=== PATIENT | female | born 1990 | race African-American/Black ===

== ENCOUNTER 2018-08-07 16:12 | Emergency (ER) | payer OTHER, SELFPAY ==
--- NOTE | 2018-08-07 17:24 | ER ---
Nurse's Notes [facility] Name: Mercedes Washington Age: 28 yrs Sex: Female : 1990 Arrival Date: 08/07/2018 Time: 16:14 Bed 6 Private MD: Diagnosis: Other abnormal uterine and vaginal bleeding;Abnormal pap smear Presentation: 08/07 16:19 Presenting complaint: Patient states: lower abd pain x 1 year ago. Pt states "I think aa5 it's cervical cancer because I had an abnormal pap smear about 2 week ago". Transition of care: patient was not received from another setting of care. Onset of symptoms was July 2018. Risk Assessment: Do you want to hurt yourself or someone else? Patient reports no desire to harm self or others. Initial Sepsis Screen: Does the patient meet any 2 criteria? No. Patient's initial sepsis screen is negative. Does the patient have a suspected source of infection? No. Patient's initial sepsis screen is negative. Care prior to arrival: None. 16:19 Method Of Arrival: Ambulatory aa5 16:19 Acuity: OLIVIA 3 aa5 Triage Assessment: 16:55 General: Appears in no apparent distress. uncomfortable, Behavior is calm, cooperative, hj appropriate for age. Pain: Complains of pain in abdomen. GI: Reports lower abdominal pain. 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 - Social history:: Smoking status: Patient/guardian denies using tobacco, Patient uses street drugs, marijuana. - Ebola Screening: : No symptoms or risks identified at this time. - Family history:: not pertinent. - Hospitalizations: : No recent hospitalization is reported. Screenin:55 Abuse screen: Denies threats or abuse. Denies injuries from another. Nutritional hj screening: No deficits noted. Tuberculosis screening: No symptoms or risk factors identified. Fall Risk None identified. Assessment: 16:56 GI: Bowel sounds present X 4 quads. hj Vital Signs: 16:21 BP 105 / 63; Pulse 106; Resp 16 S; Temp 98.6(TE); Pulse Ox 100% on R/A; Weight 55.79 kg aa5 (R); Height 5 ft. 3 in. (160.02 cm) (R); Pain 8/10; 16:21 Body Mass Index 21.79 (55.79 kg, 160.02 cm) aa5 ED Course: 16:14 Patient arrived in ED. as 16:19 Arm band placed on. aa5 16:20 Triage completed. aa5 16:54 Kiko Smith MD is Attending Physician. rn 16:54 Roe Banuelos, RN is Primary Nurse. hj 16:55 Patient has correct armband on for positive identification. Placed in gown. Bed in low hj position. Call light in reach. Side rails up X 1. 17:38 No provider procedures requiring assistance completed. Patient did not have IV access hj during this emergency room visit. Administered Medications: No medications were administered Outcome: 17:24 Discharge ordered by MD. rn 17:38 Discharged to home ambulatory, with family. hj 17:38 Condition: stable 17:38 Discharge instructions given to patient, family, Instructed on discharge instructions, follow up and referral plans. Demonstrated understanding of instructions, follow-up care. 17:39 Patient left the ED. hj Signatures: Junie Prado as Kiko Smith MD MD rn Calderon, Audri, RN RN [facility] Roe Banuelos RN RN
--- NOTE | 2018-08-07 17:24 | EDPHYS ---
Physician Documentation [facility] Name: Mercedes Washington Age: 28 yrs Sex: Female : 1990 Arrival Date: 08/07/2018 Time: 16:14 Bed 6 Private MD: ED Physician Kiko Smith HPI: 08/07 17:16 This 28 yrs old Black Female presents to ER via Ambulatory with complaints of cervical rn cancer. 17:16 The patient presents with vaginal bleeding that is light, with no clots. Onset: The rn symptoms/episode began/occurred 1 year(s) ago. Modifying factors: The symptoms are alleviated by nothing, the symptoms are aggravated by sexual intercourse. Severity of symptoms: At their worst the symptoms were mild, in the emergency department the symptoms are unchanged. The patient has experienced similar episodes in the past. The patient has been recently seen by a physician:. Reports 1 year of mild pelvic pain, intermittent, pain with sex, and irregular vaginal bleeding. Seen by her staff research scientist 2 weeks ago, had pap smear, results were called to her today, told atypical cells found, and now patient is concerned she has cervical cancer and is going to . Her staff research scientist has scheduled next step in evaluation of abnormal pap, but patient does not want to wait. No acute changes. . 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 - Social history:: Smoking status: Patient/guardian denies using tobacco, Patient uses street drugs, marijuana. - Ebola Screening: : No symptoms or risks identified at this time. - Family history:: not pertinent. - Hospitalizations: : No recent hospitalization is reported. ROS: 17:16 Constitutional: Negative for fever, chills, and weight loss, Eyes: Negative for injury, rn pain, redness, and discharge, Neck: Negative for injury, pain, and swelling, Cardiovascular: Negative for chest pain, palpitations, and edema, Respiratory: Negative for shortness of breath, cough, wheezing, and pleuritic chest pain, Abdomen/GI: + pelvic pain Back: + low back pain : + vaginal bleeding and post-coital cervical pain MS/Extremity: Negative for injury and deformity, Neuro: Negative for headache, weakness, numbness, tingling, and seizure. Exam: 17:16 Constitutional: This is a well developed, well nourished patient who is awake, alert, rn and in no acute distress. Very anxious Head/Face: Normocephalic, atraumatic. Abdomen/GI: soft, non-tender Neuro: Awake and alert, GCS 15, oriented to person, place, time, and situation. Cranial nerves II-XII grossly intact. Motor strength 5/5 in all extremities. Sensory grossly intact. Cerebellar exam normal. Normal gait. Vital Signs: 16:21 BP 105 / 63; Pulse 106; Resp 16 S; Temp 98.6(TE); Pulse Ox 100% on R/A; Weight 55.79 kg aa5 (R); Height 5 ft. 3 in. (160.02 cm) (R); Pain 8/10; 16:21 Body Mass Index 21.79 (55.79 kg, 160.02 cm) aa5 MDM: 16:54 Patient medically screened. rn 17:21 Differential diagnosis: cervicitis, endometriosis, menometrorrhagia, vaginosis, rn cervical cancer. Data reviewed: vital signs, nurses notes, and as a result, I will discharge patient. Counseling: I had a detailed discussion with the patient and/or guardian regarding: the historical points, exam findings, and any diagnostic results supporting the discharge/admit diagnosis, the need for outpatient follow up, to return to the emergency department if symptoms worsen or persist or if there are any questions or concerns that arise at home. Special discussion: I discussed with the patient/guardian in detail that at this point there is no indication for admission to the hospital. It is understood, however, that if the symptoms persist or worsen the patient needs to return immediately for re-evaluation. Based on the history and exam findings, there is no indication for further emergent testing or inpatient evaluation. I discussed with the patient/guardian the need to see the OB Gyne specialist for further evaluation of the symptoms. ED course: Had very long discussion with patient and significant other, no test in ER to rule in or out cervical cancer, reassured her that she is in correct w/u path with her staff research scientist, and needs colpo or whatever her TRANSPORTATION ENGINEERING TECHNICIAN recommends. Pt states not and tubes are tied. She is happy with explanation and states she is just scared. Has appt with TRANSPORTATION ENGINEERING TECHNICIAN for next step in w/u coming up. No abd or pelvic tenderness. . Administered Medications: No medications were administered Disposition: 08/07/18 17:24 Discharged to Home. Impression: Other abnormal uterine and vaginal bleeding, Abnormal pap smear. - Condition is Stable. - Medication Reconciliation Form, Thank You Letter, Antibiotic Education, Prescription Opioid Use form. - Follow up: Private Physician; When: As needed; Reason: Recheck today's complaints, Re-evaluation by your physician. - Problem is new. - Symptoms have improved. Signatures: Kiko Smith MD MD rn Calderon, Audri RN RN aa5 Roe Banuelos RN RN hj Corrections: (The following items were deleted from the chart) 17:21 17:16 Constitutional: This is a well developed, well nourished patient who is awake, rn alert, and in no acute distress. Very anxious Head/Face: Normocephalic, atraumatic. Abdomen/GI: soft, non-tender rn 17:39 17:24 08/07/2018 17:24 Discharged to Home. Impression: Other abnormal uterine and hj vaginal bleeding; Abnormal pap smear. Condition is Stable. Forms are Medication Reconciliation Form, Thank You Letter, Antibiotic Education, Prescription Opioid Use. Follow up: Private Physician; When: As needed; Reason: Recheck today's complaints, Re-evaluation by your physician. Problem is new. Symptoms have improved. rn
[2018-08-07 17:43] VITALS: BP 105/63; TEMP 98.6; O2SAT 100
== END 2018-08-07 17:39 | disposition home or self-care (01) ==
LOC: ER 16:12
DX: N93.8 Other specified abnormal uterine and vaginal bleeding (principal); R89.6 Abnormal cytological findings in specimens from other organs, systems and tissues
CPT/HCPCS: 99281

== ENCOUNTER 2021-08-01 09:16 | Emergency (ER) | payer OTHER, SELFPAY ==
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
[2021-08-01 10:43] VITALS: BP 114/88; TEMP 98; O2SAT 100
== END 2021-08-01 10:22 | disposition home or self-care (01) ==
LOC: ER 09:16
DX: M79.10 Myalgia, unspecified site (principal); V48.5XXA Car driver injured in noncollision transport accident in traffic accident, initial encounter; Y93.89 Activity, other specified; Y92.410 Unspecified street and highway as the place of occurrence of the external cause
CPT/HCPCS: 99283